=== PATIENT | male | born 1980 | race Hispanic/Latino ===

== ENCOUNTER 2021-07-24 19:36 | Emergency (ER) | payer BC ==
[~2021-07-24] VITALS: Ht 175.3 cm; Wt 77.1 kg
[2021-07-24 20:57] VITALS: BP 120/72
== END 2021-07-24 20:57 | disposition home or self-care (01) ==
LOC: FSED 19:49
DX: M20.011 Mallet finger of right finger(s) (principal); W01.0XXA Fall on same level from slipping, tripping and stumbling without subsequent striking against object, initial encounter; Y93.01 Activity, walking, marching and hiking
CPT/HCPCS: 99283

== ENCOUNTER 2021-08-06 19:52 | Emergency (ER) | payer BC, OTHER ==
[~2021-08-06] VITALS: Ht 175.3 cm; Wt 77.1 kg
[2021-08-06] MEDS ORDERED: DIAZEPAM INJ 5 MG/ML 2 ML IM ONE (20:00)
[2021-08-06] MEDS ORDERED: KETOROLAC TROMETHAMINE 60 MG/2 ML VIAL IM ONE (20:00)
[2021-08-06] MEDS ORDERED: HYDROCODONE/APAP 5MG-325MG TAB PO ONE (20:00)
[2021-08-06] MEDS ORDERED: NAPROXEN250 MG PO (20:27)
[2021-08-06] MEDS ORDERED: METHOCARBAMOL750 MG PO (20:27)
[2021-08-06] MEDS ORDERED: KETOROLAC TROMETHAMINE 60 MG/2 ML VIAL ONE (20:43)
[2021-08-06] MEDS ORDERED: DIAZEPAM INJ 5 MG/ML 2 ML ONE (20:44)
[2021-08-06] MEDS ORDERED: HYDROCODONE/APAP 5MG-325MG TAB ONE (20:44)
[2021-08-06 21:54] VITALS: BP 136/74
== END 2021-08-06 21:54 | disposition home or self-care (01) ==
LOC: FSED 20:01
DX: S39.012A Strain of muscle, fascia and tendon of lower back, initial encounter (principal)
CPT/HCPCS: 72131; 96372; 99283; J1885; J3360